=== PATIENT | female | born 1965 | race Caucasian/White ===

== ENCOUNTER 2020-01-10 15:24 | Emergency (ER) | payer BC ==
[~2020-01-10] VITALS: Ht 157.5 cm; Wt 49.0 kg
[~2020-01-10 15:24] MED LIST: IBUPROFEN200 M2; NORCO 5-325 TA1 EACH PO; PERCOCET 5-3251 EACH PO; TAMSULOSIN HCL0.4 M1 PO; VISTARIL 25 MG25 M1 PO; ZOFRAN4 MG PO
[2020-01-10] MEDS ORDERED: AUGMENTIN 875-1 EACH PO (16:01)
[2020-01-10] MEDS ORDERED: CIPRODEX OTIC7.5 ML OTIC (16:01)
[2020-01-10] MEDS ORDERED: NORCO 5-325 TA1 EAC1 PO (16:04)
[2020-01-10 16:25] VITALS: BP 129/86
== END 2020-01-10 16:25 | disposition home or self-care (01) ==
LOC: M.ERS 15:24
DX: H72.92 Unspecified perforation of tympanic membrane, left ear (principal); H66.92 Otitis media, unspecified, left ear; Z88.2 Allergy status to sulfonamides; Z87.442 Personal history of urinary calculi; Z90.710 Acquired absence of both cervix and uterus

== ENCOUNTER 2020-03-16 11:10 | Emergency (ER) | payer BC ==
[~2020-03-16] VITALS: Ht 160 cm; Wt 49.9 kg
[~2020-03-16 11:10] MED LIST changes: +AUGMENTIN 875-1 EACH PO; +CIPRODEX OTIC7.5 ML OTIC; +NORCO 5-325 TA1 EAC1 PO
[2020-03-16] MEDS ORDERED: LIPITOR 20 MG T20 M1 PO (11:24)
[2020-03-16 11:34] LABS: URINE BILIRUBIN NEGATIVE (Negative); URINE BLOOD NEGATIVE (Negative); URINE CLARITY CLEAR; URINE COLOR YELLOW; URINE GLUCOSE-RANDOM NEGATIVE (Negative); URINE KETONES NEGATIVE (Negative); URINE LEUKOCYTES-REFLEX NEGATIVE (Negative); URINE NITRITE-REFLEX NEGATIVE (Negative); URINE PROTEIN NEGATIVE (Negative); URINE UROBILINOGEN 0.2 E.U./dl (0.2-1.0)
[2020-03-16] MEDS ORDERED: FLOMAX0.4 MG PO (12:02)
[2020-03-16] MEDS ORDERED: CIPRO500 M1 PO (12:02)
[2020-03-16] MEDS ORDERED: NORCO 5-325 TA1 EAC1 PO (12:02)
[2020-03-16 12:17] VITALS: BP 128/76
== END 2020-03-16 12:19 | disposition left against medical advice (07) ==
LOC: M.ERS 11:10
PROVIDERS: Family Medicine
DX: R10.9 Unspecified abdominal pain (principal); E78.00 Pure hypercholesterolemia, unspecified; F17.210 Nicotine dependence, cigarettes, uncomplicated; Z90.710 Acquired absence of both cervix and uterus; Z87.442 Personal history of urinary calculi; Z88.2 Allergy status to sulfonamides

== ENCOUNTER 2021-03-24 14:39 | Emergency (ER) | payer BC ==
[~2021-03-24] VITALS: Ht 157.5 cm; Wt 49.9 kg
[~2021-03-24 14:39] MED LIST changes: +CIPRO500 M1 PO; +FLOMAX0.4 MG PO; +LIPITOR 20 MG T20 M1 PO
[2021-03-24] MEDS ORDERED: STEROID EYE DROPS (14:50)
[2021-03-24 15:27] VITALS: BP 143/74
== END 2021-03-24 15:28 | disposition home or self-care (01) ==
LOC: M.ERS 14:39
DX: M26.622 Arthralgia of left temporomandibular joint (principal); E78.00 Pure hypercholesterolemia, unspecified; Z87.442 Personal history of urinary calculi; Z90.710 Acquired absence of both cervix and uterus; Z88.2 Allergy status to sulfonamides; Z88.6 Allergy status to analgesic agent

== ENCOUNTER → 2021-08-14 | Emergency (ER) | payer BC ==
[~2021-08-14] VITALS: Ht 157.5 cm; Wt 49.9 kg
[~2021-08-14] MED LIST changes: +APAP W/CODEINE1 TA2 PO; +CEPHALEXIN500 MG PO; +STEROID EYE DROPS
[2021-08-14 18:59] VITALS: BP 122/64
== END ==
LOC: M.ERS 18:12
DX: H92.01 Otalgia, right ear (principal); E78.00 Pure hypercholesterolemia, unspecified; F17.210 Nicotine dependence, cigarettes, uncomplicated; Z88.8 Allergy status to other drugs, medicaments and biological substances; Z88.2 Allergy status to sulfonamides; Z90.710 Acquired absence of both cervix and uterus